=== PATIENT | male | born 1970 | race Caucasian/White ===

== ENCOUNTER 2016-12-31 08:12 | Day surgery (SDC) | END 2016-12-31 12:36 | disposition home or self-care (01) | DX: D18.01 Hemangioma of skin and subcutaneous tissue (principal); E11.9 Type 2 diabetes mellitus without complications | CPT/HCPCS: 14021; 82962; 88307; J0690; J1100; J1885; J2250; J2405; J3010; Z7512; Z7610 ==

== ENCOUNTER → 2016-12-31 22:57 | Emergency (ER) | payer OTHER ==
[~2016-12-31 22:57] MED LIST: ATOR40TA68 PO; LISI20TA11 PO; LORA5SOL74 PO; METF1000 PO; OMEP20CA16 PO
== END | disposition left against medical advice (07) ==
LOC: E/R 22:57
DX: Z53.21 Procedure and treatment not carried out due to patient leaving prior to being seen by health care provider (principal)